=== PATIENT | female | born 1970 | race Caucasian/White ===

== ENCOUNTER 2017-02-09 08:22 | Emergency (ER) | payer OTHER ==
[~2017-02-09] VITALS: Ht 157.5 cm; Wt 63.5 kg
[~2017-02-09 08:22] MED LIST: AMBIEN10 MG; PANTOPRAZOLE SO40 MG PO
[2017-02-09] MEDS ORDERED: KETOROLAC TROMETHAMINE 30 MG/ML VIAL IV ONE (09:15)
[2017-02-09 09:48] VITALS: BP 114/70
== END 2017-02-09 10:25 | disposition home or self-care (01) ==
LOC: ER 08:22
DX: K04.7 Periapical abscess without sinus (principal)
CPT/HCPCS: 99283; J1885